=== PATIENT | male | born 2000 | race Caucasian/White ===

== ENCOUNTER 2023-02-05 03:38 | Emergency (ER) | payer OTHER ==
[2023-02-05] MEDS ORDERED: Ketorolac Tromethamine 30 MG/ML VIAL ONE (03:54)
[2023-02-05] MEDS ORDERED: Ondansetron PF 4 MG/2 ML Vial ONE (03:54)
[2023-02-05] MEDS ORDERED: Haloperidol Lactate 5 MG/ML VIAL ONE (03:54)
[2023-02-05 04:09] LABS: Bilirubin Neg (Negative); Blood, Urine 250 (Negative); Clarity Cloudy (Clear); Glucose, Urine (Dipstick) Normal (Negative); Ketone, Urine 50 mg/dL (Negative); Leukocyte 100 (Negative); Nitrite Negative (Negative); Protein, Urine (Dipstick) 30 mg/dl (Neg-Trace)
[2023-02-05 04:23] LABS: Hematocrit 44.3 % (38.8-50.0); Hemoglobin 15.5 g/dL (13.5-17.5); Mean Corpuscular Volume 83.1 fl (81.2-95.1); Red Blood Cell (RBC) Count 5.33 10x6/uL (4.32-5.72)
[2023-02-05 04:24] LABS: Mean Corpuscular Hemoglobin 29.1 pg (27.0-33.0); RBC Distribution Width 12.3 % (11.5-14.5)
[2023-02-05 04:25] LABS: Mean Platelet Volume 10.6 fl (7.4-10.4); Platelet Count 335 10x3/uL (130-400)
[2023-02-05 04:31] LABS: MDiff Complete? YES
[2023-02-05 04:45] LABS: CAUTI Indications for Culture Pelvic or flank pain; Squamous Epithelial None Seen HPF (0-3)
[2023-02-05 04:46] LABS: Bacteria/HPF Rare-Few HPF (None Seen); Urine Culture Reflex Yes Yes
[2023-02-05 05:05] LABS: Potassium 2.8 mmol/L (3.5-5.1); Sodium 140 mmol/L (136-145)
[2023-02-05 05:06] LABS: BUN (Urea Nitrogen) 14 mg/dL (8.9-20.6); Calc. Creatinine Clearance 0 mL/min (70-130); Carbon Dioxide 21 mmol/L (22-29); Chloride 100 mmol/L (98-107)
[2023-02-05 05:07] LABS: ALT (SGPT) 20 U/L (8-55); AST (SGOT) 24 U/L (5-34); Albumin 4.9 g/dL (3.5-5.0); Alkaline Phosphatase 85 U/L (40-110); Bilirubin, Total 1.2 mg/dL (0.2-1.2); Calcium 9.9 mg/dL (7.6-10.4); Estimated GFR 79; Globulin 3.3 g/dL (2.4-3.5); Glucose 150 mg/dL (70-105); Lipase 7 U/L (8-78); Protein, Total 8.2 g/dL (6.0-8.3)
[2023-02-05] MEDS ORDERED: Magnesium 2 GM/50 ML BAG (IN WATER) ONE (05:12)
[2023-02-05] MEDS ORDERED: Potassium Chloride 20 MEQ TAB ONE (05:12)
[2023-02-05 07:03] LABS: Band 2 % (5-11); Eosinophils 3 % (0-10); Lymphocytes 28 % (21-51); Monocytes 4 % (0-10); Neutrophil 63 % (42-75)
[2023-02-05 07:05] LABS: Platelet Adequacy Comment Appears Adequate; RBC Morph Comment Within Normal Limits
[2023-02-05 07:18] LABS: Anion Gap 22 mmol/L (10-20)
== END 2023-02-05 06:39 | disposition home or self-care (01) ==
LOC: CSHERS 03:38
DX: N13.2 Hydronephrosis with renal and ureteral calculous obstruction (principal); E87.6 Hypokalemia; F17.290 Nicotine dependence, other tobacco product, uncomplicated
CPT/HCPCS: 74176; 80053; 81001; 83690; 85025; 87086; 93005; 96365; 96375; J1630; J1885; J2405; J3475